=== PATIENT | male | born 1950 | race Caucasian/White ===

== ENCOUNTER → 2021-02-27 08:28 | Outpatient (CLI) | payer MEDICARE, SELFPAY ==
[2021-02-27 13:25] LABS: COVID19 -Nasal RAPID Negative (Negative)
== END ==
PROVIDERS: PCP Nurse Practitioner; Visit Provider Nurse Practitioner Family
DX: Z20.822 Contact with and (suspected) exposure to COVID-19 (principal)
CPT/HCPCS: 87635; C9803

== ENCOUNTER 2021-03-01 09:24 | Observation (INO) | payer MEDICARE, OTHER, SELFPAY ==
[2021-02-26 11:50] VITALS: BMI 28.7
[2021-02-28] VITALS (12 sets, daily range): BP systolic 112–163; BP diastolic 67–95; PULSE 52–87; RESP 12–17; TEMP 36.1–37.1; O2SAT 96–100; BMI 28.1
--- NOTE | 2021-02-28 06:00 | DI.RAD.S_ITS ---
PROCEDURE: XR HIP W PEL IF DONE LT 2V INDICATIONS: postop prosthesis placement TECHNIQUE: AP pelvis with lateral view(s) of the left hip(s). COMPARISON: [facility], MOE, XR HIP W PEL IF DONE LT 2V, 02/28/2021, 16:13. FINDINGS: Bones: Expected post operative alignment of left hip arthroplasty. Hardware appears intact. Mild right hip joint degeneration. No acute fracture. Soft tissues: Expected postsurgical changes. IMPRESSION: Expected post operative appearance Dictated by: Rakesh Rosen M.D. on 03/01/2021 at 10:31 Approved by: Rakesh Rosen M.D. on 03/01/2021 at 10:32
[2021-02-28] MEDS: LACTATED RINGERS 1,000 ML 42 ML IV ×2 (10:39→16:39)
[2021-02-28] MEDS: CELECOXIB 200 MG CAPSULE PO (11:08)
[2021-02-28] MEDS: PREGABALIN 75 MG CAPSULE PO (11:09)
[2021-02-28] MEDS: ACETAMINOPHEN 325 MG TABLET 975 MG PO (11:09)
--- NOTE | 2021-02-28 11:09 | PM.PREOP ---
Pre-operative Note COVID-19 COVID-19 status: Negative Interval Note History & Physical reviewed/Exam performed by Physician: Yes Changes to H&P: No
--- NOTE | 2021-02-28 11:10 | P.OP_ITS ---
Operative Date/Time/Diagnoses Date of procedure: 02/28/21 Time of procedure: 13:00 Pre-op diagnosis: Left hip osteoarthritis severe Post-op diagnosis: same Procedure & Clinicians Procedure: Left total hip arthroplasty anterior approach Same procedure as scheduled: Yes Indications: The patient has had progressively worsening left hip pain with radiographic changes consistent with arthritis. Non-operative management has failed and the patient has requested total hip replacement. The risks, benefits and alternatives to surgery were discussed with the patient prior to proceeding. Risks discussed included, but were not limited to, failure to relieve pain, leg length discrepancy, dislocation, stiffness, infection, nerve damage, deep venous thrombosis, pulmonary embolism, stroke, coma, heart attack, permanent paralysis and , as well as the potential need for eventual revision of the prosthetic. Surgeon: Shanika Majano Aquaculture Worker: Ondina Alston Anesthesia Type: General and Spinal Operative Notes Findings: Severe left hip osteoarthritis, adequate bone instability Closure Type: primary Specimen(s): none sent Prosthetic devices, grafts, tissues, transplants, or devices: Majano and Nephew 56 mm R3 cup, one 15 mm screw. Size 7 standard offset anthology a fit, 36 by -3 Oxinium femoral head, neutral poly liner Estimated Blood Loss (mL): 250 Blood products transfused: none Procedure in detail: The patient was brought to the operating room. Patient was carefully positioned in the supine position. Time-out was performed and antibiotics were given. Anesthesia was induced. He was positioned in the on the table in order to allow hyperextension of the hip. The left lower extremity was prepped and draped in a standard sterile fashion. An anterior left hip incision was made 1 fingerbreadth lateral to the anterior superior iliac spine and extended distally towards the greater trochanter. Dissection was carried out through skin and subcutaneous tissues. Superficial hemostasis was achieved. The fascia over the tensor fascia daron was defined and incised with a knife. Two Allis clamps were used to grasp the fascia. Tensor fascia daron was retracted laterally. A gelpi retractor was placed. Dissection was carried out down along the neck. The circumflex vessels were carefully identified and cauterized with the Aqua Mantis. There was good visualization of the femoral neck. A Cobra was placed superior to the neck and the gluteus fibers were carefully stripped from that superior aspect of the capsule. A 2nd retractor was placed along the inferior aspect of the neck. The rectus insertion along the capsule was partially released. A 3rd retractor that was then gently placed over the rim of the acetabulum under the rectus. Capsule was carefully incised and released from the intertrochanteric line circumferentially superior to the mid sagittal line and inferiorly to the mid sagittal line until the lesser trochanter was palpable. A tag stitch was placed both in the superior and inferior limb of the capsular insertion. Along the acetabulum capsule was also released up to the mid sagittal 12:00 position. A portion of the labrum was resected. A saw was used to perform an osteotomy at the level of the intertrochanteric line and the junction of the superior femoral neck leaving approximately 1 finger breath of residual inferior neck above the lesser trochanter. A 2nd cut was made along the femoral neck at the base of the head and a napkin ring of neck was removed. Corkscrew was placed in the femoral head and the head was removed without difficulty. Retractors were then repositioned around the acetabulum. Residual labrum was resected and additional osteophytes were removed. A reamer that was 4 mm below the templated size was placed by hand in the acetabulum and it was reamed to centralize the acetabulum. It was then reamed up to 2 under the templated size and fluoroscopy was brought in to confirm the position of the reaming and depth of reaming. I reamed 1 under the anticipated size. A trial cup was placed and noted that it was appropriately sized and fluoroscopy confirmed position and depth. The component was open and inserted without difficulty fluoroscopic imaging was used to confirm that the cup had been adequately seated and was well positioned. It was further stabilized with a single screw. Neutral poly liner was placed. The cup was tested and noted to be stable. Attention was then directed to the femur. The femur was gently hyperextended additional capsular release was performed as needed in order to allow adequate visualization of the proximal femur with elevation of the femur. Patient was placed in a hyperextended slightly adducted position with maximum external rotation. Box osteotome was used to check for any residual neck as well as sclerotic bone along the trochanter. [place] pepper was placed in the femur. Additional broaching was performed. Canal finder was used to determine the alignment of the canal and position. Size 1 broach was placed. The canal was then appropriately broached up to the templated size as long as there was adequate stability of the broach and serial advancement of the broach without excessive impingement. Specific attention was directed at avoiding varus attempting to direct the distal aspect of the broach more anteriorly and avoiding excessive anteversion. Trial reduction showed acceptable range of motion, good stability, no posterior impingement, restorationist of leg length and appropriate lateral shuck. I also hyperflexed the hip and checked that there was no impingement anteriorly and there was good stability with flexion, adduction and internal rotation. Marcaine and Exparel were injected. The stem was placed without difficulty. Repeat trial reduction and x-ray showed acceptable overall position, length, and no evidence of the femoral fracture. Final head was placed. Wound was meticulously irrigated with normal saline. The hip was reduced and additional Exparel and Marcaine were injected. The capsule was closed with interrupted nonabsorbable sutures. The fascia of the tensor was closed with interrupted and running Vicryl. No drain was placed. Any tensor fascia daron muscle that appeared to be contused or injured which was a minimal amount was carefully resected. Capsule around the tensor was injected with Exparel and Marcaine. The skin was closed with barbed stitches for the subcutaneous tissue and skin. We also used surgical glue. The wound was dressed sterilely. Brief Betadine soak was also used and was meticulously irrigated with normal saline. Patient was transferred to recovery room in satisfactory condition. Complications: none Post-operative Condition: stable Disposition: Acute Care Plan for aftercare: The patient will be maintained on a standard total hip replacement protocol with weight bearing as tolerated and anterior hip precautions. The patient will receive Aspirin and sequential compression devices for DVT prophylaxis. The patient will be discharged home when safe for the home environment.
--- NOTE | 2021-02-28 14:30 | DI.RAD.S_ITS ---
PROCEDURE: XR HIP W PEL IF DONE LT 2V INDICATIONS: LEFT TOTAL HIP ANTERIOR TECHNIQUE: AP pelvis with lateral view(s) of the left hip(s). COMPARISON: None. FINDINGS: Spot fluoroscopic intraoperative images demonstrating left hip arthroplasty components in expected intraoperative alignment. Dictated by: Rakesh Rosen M.D. on 03/01/2021 at 10:22 Approved by: Rakesh Rosen M.D. on 03/01/2021 at 10:22
[2021-02-28] MEDS: CEFAZOLIN 1 GM VIAL 2 GM IV ×2 (15:04→22:47)
[2021-02-28] MEDS: TRANEXAMIC ACID 1,000 MG VIAL 1000 MG INJ (15:09)
[2021-02-28] MEDS: VANCOMYCIN 1,000 MG/200 ML PIGGYBACK 200 MG IV (15:11)
--- NOTE | 2021-02-28 15:15 | SUR.OPER ---
Patient supine on padded [place] table, rIGHT arm on padded arm board at <90, Left arm padded and secured with tape across patient's chest, both legs secured in padded traction boots and positioned per surgeon, padded post at patient's groin, pressure points checked and padded.
[2021-02-28] MEDS: BUPIVACAINE LIPOSOME 266 MG/20 ML VIAL INJ (15:23)
[2021-02-28] MEDS: BUPIVACAINE 0.25% (PF) 60 ML, EPINEPHrine 0.3 MG INJ (15:27)
[2021-02-28] MEDS: LACTATED RINGERS 1,000 ML 125 ML IV (19:03)
[2021-02-28] MEDS: OXYCODONE IR 5 MG TABLET 10 MG PO ×2 (19:03→22:17)
[2021-02-28] MEDS: ACETAMINOPHEN 325 MG TABLET 650 MG PO (20:29)
[2021-02-28] MEDS: ATORVASTATIN 20 MG TABLET 40 MG PO (20:31)
[2021-02-28] MEDS: ASPIRIN EC 81 MG TABLET PO (20:31)
[2021-02-28] MEDS: DOCUSATE 100 MG CAPSULE PO (20:31)
[2021-02-28] MEDS: AMLODIPINE 5 MG TABLET 20 MG PO (20:32)
[2021-02-28] MEDS: COLCHICINE 0.6 MG TABLET PO (21:14)
[2021-02-28] MEDS: ZOLPIDEM 5 MG TABLET 10 MG PO (21:39)
--- NOTE | 2021-02-28 23:29 | PC.NURSE ---
1830: Pt to room 206 from PACU awake, alert, conversant. Admits to pain 8/10 to left hip and left shoulder. Ice placed to sites and meds as per emar. DRAWING IN MACHINE TENDER remains with pt to address pt's left shoulder complaint. States likely due to positioning on OR table. Pt's spouse arrives with pt's own cpap and will be spending night in room. R.T. informed pt has own cpap. Pt states sensation to feet BL is slightly dulled. BL calf scd's in place. Able to ankle wave with palpable pedal pulses. Denies nausea. Continuous pulse oximeter in place. HR mid to upper 50's and DRAWING IN MACHINE TENDER states this was patient's baseline in PACU as well. Pillow between legs and hip precautions reviewed with pt and pt's spouse. Anticipating P.T. in a.m.
[2021-03-01] VITALS: BP 116/68; PULSE 75; RESP 19; TEMP 36.8; O2SAT 97
[2021-03-01] MEDS: OXYCODONE IR 5 MG TABLET 10 MG PO ×4 (01:26→11:45)
[2021-03-01] MEDS: LACTATED RINGERS 1,000 ML 125 ML IV (02:51)
[2021-03-01 04:00] VITALS: BP 105/69; PULSE 86; RESP 17; TEMP 37.1; O2SAT 96
[2021-03-01 06:22] LABS: Hematocrit 29.7 % (41-53); Hemoglobin 10.5 g/dL (13.5-17.5)
--- NOTE | 2021-03-01 07:25 | PM.DS.1 ---
History of Present Illness History of Present Illness Date Patient Seen: 03/01/21 Time Patient Seen: 07:25 Chief complaint: Left hip pain s/p left SHIRA Narrative: Patient is complaining of [id number] left hip pain this morning. He notes he has some lateral thigh numbness which is new since surgery. No fevers, chills, night sweats. No nausea or vomiting. Overall he is feeling well, and like to be discharged home today. Discharge Providers Provider Discharge Date: 03/01/21 Primary care physician: CULLEN Calderón Consults: 02/28/21 06:00 Consult to Anesthesiology Routine Comment: Consulting Provider: Anesthesiologist Reason for consultation: Regional block for post operative pain control 02/28/21 18:42 Consult to Discharge Planning Routine Comment: Consult to Physical Therapy Evaluate & Treat Comment: Physician Instructions: post op SHIRA protocol Consult to Respiratory Therapy Evaluate & Treat Comment: Physician Instructions: Evaluate and treat Discharge provider: Ondina Alston PA-C Summary Hospital Course Discharge Diagnosis: Severe left hip osteoarthritis Hospital Course: Date of procedure: 02/28/21 Time of procedure: 13:00 Procedure & Clinicians Procedure: Left total hip arthroplasty anterior approach Same procedure as scheduled: Yes Indications: The patient has had progressively worsening left hip pain with radiographic changes consistent with arthritis. Non-operative management has failed and the patient has requested total hip replacement. The risks, benefits and alternatives to surgery were discussed with the patient prior to proceeding. Risks discussed included, but were not limited to, failure to relieve pain, leg length discrepancy, dislocation, stiffness, infection, nerve damage, deep venous thrombosis, pulmonary embolism, stroke, coma, heart attack, permanent paralysis and , as well as the potential need for eventual revision of the prosthetic. Surgeon: Shanika Majano Power Hammer Operator: Ondina Alston Anesthesia Type: General and Spinal Operative Notes Findings: Severe left hip osteoarthritis, adequate bone instability Closure Type: primary Specimen(s): none sent Prosthetic devices, grafts, tissues, transplants, or devices: Majano and Nephew 56 mm R3 cup, one 15 mm screw.? Size 7 standard offset anthology a fit, 36 by -3 Oxinium femoral head, neutral poly liner Estimated Blood Loss (mL): 250 Blood products transfused: none Status at Discharge Cognitive/behavioral status at discharge: oriented Functional status at discharge: uses cane/walker Overall status at discharge: patient is progressing back to baseline Exam Vital Signs (past 8 hours): - 03/01/21 00:00 03/01/21 04:00 Temperature 98.2 F 98.8 F Pulse Rate 75 86 Respiratory Rate 19 17 Blood Pressure 116/68 105/69 Pulse Oximetry 97 96 Oxygen Delivery Method CPAP Oxygen Flow Rate 0 Narrative Exam Narrative: 70-year-old male, resting comfortably in bed, no acute distress. is at bedside. Bilateral lower extremity motor functions are grossly intact. Sensation is grossly intact to light touch in bilateral lower extremities. Bilateral calves are soft, nontender to palpation. Dressing is clean, dry, intact. Objective Labs Result Diagrams: 03/01/21 06:05 Labs: Laboratory Results - last 24 hr 03/01/21 06:05 Hgb 10.5 L Hct 29.7 L PFSH Medical History Arthritis Bradycardia HLD (hyperlipidemia) HTN (hypertension) MONIE on CPAP Prostate cancer (02/2021) PSVT (paroxysmal supraventricular tachycardia) Sleep apnea Surgical History Hx of arthroscopy of right knee (~2013) Hx of prostate biopsy Hx of right cataract extraction Social History household members: spouse Smoking Status: Former smoker alcohol intake: current Discharge Assessment & Plan Assessment and Plan Plan of Treatment: Stable status post left total hip arthroplasty -mobilize with PT. Maintain anterior hip precautions x6 weeks. Weightbearing as tolerated with front wheel walker -continue with current DVT prophylaxis and pain regimen -planning on DC home today, when cleared by PT. Discharge Plan Discharge Plan Patient Disposition: Home Discharge orders & Medications Discharge Orders: Discharge (Order); Ordered 03/01/21 Ordered By: Ondina Alston Prescriptions: New acetaminophen 500 mg capsule 500 mg PO Q4H MDD Max 6 tabs per day PRN (Reason: fever or pain) Qty: 90 RF: 0 aspirin 81 mg Tablet,Delayed Release (Dr/Ec) 81 mg PO BID PRN (Reason: X6 weeks to prevent blood clots) Qty: 90 RF: 0 docusate sodium 100 mg Capsule 100 mg PO BID PRN (Reason: Constipation from narcotic pain med) Qty: 30 RF: 0 oxycodone 5 mg Tablet 10 mg PO Q3HR PRN (Reason: Pain, Severe (7-10)) Qty: 42 RF: 0 Continued losartan 50 mg Tablet 50 mg PO DAILY RF: 0 amlodipine 10 mg Tablet 20 mg PO BEDTIME RF: 0 furosemide 20 mg Tablet 20 mg PO QAM RF: 0 zolpidem 10 mg Tablet 5 - 10 mg PO BEDTIME PRN (Reason: Sleep) RF: 0 colchicine 0.6 mg Tablet 0.6 mg PO BEDTIME RF: 0 probenecid 500 mg Tablet 500 mg PO BID RF: 0 rosuvastatin 10 mg Tablet 10 mg PO BID RF: 0 baclofen 10 mg PO PRN PRN (Reason: Pain (Scale Score 1-3)) RF: 0 tramadol 50 mg PO PRN PRN (Reason: Pain (Scale Score 1-3)) RF: 0 Changed ibuprofen 200 mg Capsule 400 mg PO Q4H MDD Max 2400 mg per day PRN (Reason: Pain/inflammation) Qty: 90 RF: 0 Discontinued hydrocodone-acetaminophen 5-325 mg Tablet 1 tab PO Q4-6H PRN (Reason: Pain) RF: 0 acetaminophen 500 mg Tablet 1,000 mg PO BID RF: 0 Follow up/Referrals: Zachery Bethea ARNP [Primary Care Provider] - Shanika Majano MD [Physician] - (10-14 days for postoperative visit) Diet/Activity/Treatments Diet: Diet as Tolerated and Regular Other treatments: Medications: -Aspirin 81mg twice daily x6 weeks to prevent blood clots. -OTC Tylenol 500 mg 1 tablet every 4 hours as needed for pain/fever. Max 6 tablets per day. -Ibuprofen 400 mg 1 tablet every 4 hours as needed for pain/inflammation. Max 2,400 mg per day. -Oxycodone 5 mg take 1-2 tablets every 4 hours as needed for moderate-severe pain (narcotic pain medication). -As needed medications: -Ducolax and /or MiraLax as needed for constipation from narcotic pain medications. -Pepcid AC as needed for stomach upset (usually from aspirin or ibuprofen). Dressing/Wound care: -Remove the Kenneth wrap 48 hours after surgery. -Keep Aquacell dressing in place until postoperative follow-up office visit. -Okay to shower. Keep wound out of direct water stream. No soaking or submerging until all the scabs fall off (approximately 6 weeks). -Please call the office if dressing becomes wet, soiled, or saturated. Activities: -Maintain anterior hip precautions x6 weeks. -Weight-bearing as tolerated. Use front wheeled walker, and progress to cane when safe. -Continue with home exercises as directed by your physical therapist. -Elevate ?toes above the nose if you have significant swelling in your lower leg. (A wedge pillow is easiest.) -Ice your incision as needed for pain/inflammation/swelling. Protect your skin with a folded pillowcase. Follow-up: -Follow-up with your surgeon or PA in the office in 10-14 days after surgery. -Follow-up with your surgeon 6 weeks postoperatively. Call the office if you have chest pain, shortness of breath, significant swelling that will not resolve with elevating, fever over 101?, significantly worsening pain. [facility]: [phone] Skin/Wound/Dressing Care Report to your healthcare provider any signs of infection, such as:: chills, fever, night sweats, unusual drainage and unusual redness Visit Report/Discharge Packet Instructions: DI for Hip Replacement Stand Alone Forms: Surgery Discharge Discharge Data Primary Care Provider: Zachery Bethea Attending Provider: Shanika Majano
[2021-03-01 07:45] VITALS: BP 114/65; PULSE 69; RESP 18; TEMP 37.3; O2SAT 96
[2021-03-01] MEDS: ASPIRIN EC 81 MG TABLET PO (08:38)
[2021-03-01] MEDS: DOCUSATE 100 MG CAPSULE PO (08:38)
[2021-03-01] MEDS: ACETAMINOPHEN 325 MG TABLET 650 MG PO (08:38)
[2021-03-01 08:40] VITALS: BP 114/65; PULSE 69
[2021-03-01] MEDS: FUROSEMIDE 20 MG TABLET PO (08:40)
[2021-03-01] MEDS: LOSARTAN 50 MG TABLET PO (08:40)
--- NOTE | 2021-03-01 09:00 | CM.DANOTE ---
DCP: Case received, EMR reviewed and met with patient. Spouse, Jenise, was also at bedside. Introduced self and role. Was able to obtain information regarding patient's baseline activity status prior to surgery. DCP assessment completed with information currently available. Patient is a 70 year old male who admitted yesterday morning to the care of the orthopedic team. PCP: Dr. Bethea. Payer: confirmed: Medicare. Patient came to the hospital via private vehicle for a surgical procedure. He had left total hip arthroplasty. Patient has history of left hip osteoarthritis. Met with patient in his room. He was sitting up on the side of his bed having breakfast, spouse in the room. Confirmed that he is independent at his baseline, and he is employed as a air quality consultant. Him and his reside in [facility] in [facility] [facility], their [place] is a mailing address. Asked him how he had gotten around prior to surgery, and he indicated, hobbling around. He is still driving. His recently obtained a FWW for him through [employer]. He is set up with P.T through [employer] in [facility]. P: Patient is to be discharged home today pending working with P.T. Viola London RN/Import Export Manager Discharge Planning/Care Management CM Discharge Assessment Start: 03/01/21 08:59 Freq: Status: Active Protocol: Document 03/01/21 08:59 (Rec: 03/01/21 09:00 [id number]) Discharge Planning Assessment Assigned Enrober Tender Viola London RN/Import Export Manager Advance Directives? Yes Advance Directives on File No History Provided By Patient,Medical Record Prior Living Arrangements House Household Members spouse Type of transporation used prior to Drives own vehicle admit Independent with ADL's Yes Is patient alert and oriented? Yes Caregiver for Another No DME Already Rented / Owned FWW / Walker,Cane Patient/Family Preference OP PT Therapy Barriers to Discharge No Discharge Plan Home Transportation Arrangement Spouse Referrals Initiated None needed Whiteboard Updated in Patient Room with Yes name and ext. # of Enrober Tender Review Status In Process Next Review Type Continued Stay Review Pre-Anesthesia Assessment Start: 02/26/21 11:50 Freq: Status: Active Protocol: Document 02/26/21 11:50 CAB (Rec: 02/26/21 12:39 CAB [id number]) Pre-Anesthesia Assessment Preferred Name Mark Patient Information Reviewed Via Phone Assessment Assessment Completed With Patient H&P Completed Within 30 Days No: No identified at time of assessment Diagnostic Results BMP/CMP,CBC,EKG,Urinalysis Comment Outside labs/EKG scanned, COVID screen @ [facility] 02/27/21 Primary Care Provider Zachery Bethea Seen Specialist in Last 12 Months Yes Specialist Seen Student,Orthopedist, Urologist Primary Language Slovenian Contract Engineer Required No Height 5 ft 8 in Weight 189 lb Body Mass Index (BMI) 28.7 Hearing Ability Normal Visual Assist Magnifying Glass Dentition Type Teeth, Natural Present Barriers to Learning None Hx Anesthesia Reactions No Hx Family Anesthesia Reaction No Hx Malignant Hyperthermia No Hx Blood Transfusions No Anesthesia Review Requested No alcohol intake current alcohol intake frequency 0-2 drinks per day Alcohol Intake Frequency Other: Has not been drinking over last month Smoking Status Never smoker Substance Use Type does not use Pain Present Pain Reported Musculoskeletal Symptoms Abnormal Gait,Back Pain, Difficulty Walking,Joint Pain History of Falling (Recent or History of No ) Patient is completely paralyzed or No completely immobile Mental Status Oriented to own ability Is patient on oxygen? No Does patient have YAÑEZ/SOB No Hx Sleep Apnea Yes CPAP/BIPAP use prescribed and used routinely Will Bring CPAP/BIPAP DOS Yes Currently Taking a Beta Sukhjinder No Can You Climb a Flight of Stairs Without Yes SOB Hx Chest Pain No Hx SOB No Hx Syncope or Dizziness No Anti-Coagulant Therapy No [facility] Cardiac Testing Yes: ZIO patch 01/18/21 Hx Pacemaker/ICD No Pacemaker Rep Required? No Comment Cardiac records placed in surgery folder for dos Diet Type At Home Regular dysphagia No Urinary Catheter Present No Hx Urinary Self Catheterization No Diabetes No Hx Drug Resistant Organism No Presence of External or Internal Medical Yes: Right eye IOL, CPAP Devices Have you had any close contact with No someone diagnosed with COVID-19? Received a COVID vaccine? Yes: Pfizer Received all doses? Yes Marital Status Lives With spouse Prior Living Arrangements House Number of Floors (Floors) Two Floors Support System Spouse Does the Patient Have Assistance After Yes Surgery Patient Discharge Plan Description Return Home Comment Pt advised overnight length of stay per surgeon Feels Safe in Current Environment Yes Been Physically Hurt or Threatened By a No Person in Current Environment Do you have thoughts of harming yourself None or others? Are you currently considering suicide? No Do you have a plan to hurt yourself or No Plan others? Do You Have Any Spiritual Beliefs That No May Affect Your HC Choices? Do You Have Any Cultural Practices That No May Affect Your HC Choices? Comment Thor Who Can We Speak to About Patient's Care Family, friends Identifying Code for Release of Patient Declines to issue Information Health Care Proxy/Next of Kin Jenise () Health Care Proxy Emergency Contact Name Jenise () Emergency Contact Advance Directives? Yes Advance Directives on File No Requested Patient Bring Advanced Yes Directives DOS Power of Oracle Fusion Developer Yes Power of Oracle Fusion Developer Name Jenise () Power of Oracle Fusion Developer PAC Instructions Bring CPAP/BIPAP,Durable medical equipment,Medications to take/avoid,Nasal antibiotic ,No ETOH/petroleum product on skin DOS,NPO,Post-op transportation,Pre-surgical wash,Sturdy shoes/comfortable clothes,Do not bring valuables and remove jewelry
[2021-03-01 09:10] VITALS: O2SAT 94
--- NOTE | 2021-03-01 09:25 | PT.IIE ---
Current Diagnoses Unilateral primary osteoarthritis, left hip (03/01/21) Surgery Performed Operation Date: 02/28/21 11:45 Actual Procedures p Total Hip Arthroplasty/Anterior Approach(Left) - Shanika Majano MD Medical History (Last Reviewed 03/01/21 @ 07:27 by Ondina Alston PA-C) Arthritis Bradycardia HLD (hyperlipidemia) HTN (hypertension) MONIE on CPAP Prostate cancer (02/2021) PSVT (paroxysmal supraventricular tachycardia) Sleep apnea Physical Therapy Inpatient Evaluation/Re-Eval M1 PT/OT-IP Prior Functional Status Start: 03/01/21 12:35 Freq: NEEDED Status: Active Protocol: Document 03/01/21 09:25 AB (Rec: 03/01/21 12:48 AB [id number]) Medical Review Prior Functional Status Medical History Reviewed Yes Communication able to make needs known Mobility and Gait pt stated that he is independent with all mobiltiies and ambulation without AD Social History Household Members spouse Living Arrangements House Number of Floors (Floors) Two Floors Number of Stairs To Enter/Railing? pt will stay on the main level of the house 2 steps L rail ascending to tner the house Home Environment Standard Height Toilet,Tub/ Shower Home Equipment Front Wheel Walker,Bedside Commode,Shower Seat with Backrest,Hand Held Shower,Grab Bars In Shower Additional Social History Comment has an adjustable bed M2 PT-IP Current Condition Start: 03/01/21 12:35 Freq: NEEDED Status: Active Protocol: Document 03/01/21 09:25 AB (Rec: 03/01/21 12:48 AB [email or web address]) Physical Therapy Current Condition Current Condition Evaluation Date 03/01/21 Treatment Diagnosis s/p L SHIRA anterior approach; difficulty in walking Onset Date 02/28/21 M3 PT-IP Subjective Start: 03/01/21 12:35 Freq: NEEDED Status: Active Protocol: Document 03/01/21 09:25 AB (Rec: 03/01/21 12:48 AB [email or web address]) Subjective Physical Therapy Visit Type Type Initial Evaluation Visit Start Time 09:25 Visit Stop Time 10:45 Total Visit Minutes 80 Number of SUPERVISOR SCRAP PREPARATION Visits 0 Therapy Pain Assessment Pain When Pain Assessed At Rest Pain Present Pain Present Pain Reported Location Left Shoulder Intensity 7 Scale Used Numeric (0 - 10) Pain Management Techniques Apply Cold,Distraction, Modification of Treatment,Re- positioning,Timing of Activity with Medications M4 PT-IP Mobility and Gait Start: 03/01/21 12:35 Freq: NEEDED Status: Active Protocol: Document 03/01/21 09:25 AB (Rec: 03/01/21 12:48 AB [email or web address]) PT-Bed Mobility Assessment Supine to Sit Supine to Sit Standby Assistance PT-Transfer Assessment Sit to and From Stand Sit to and from Stand Contact Guard Assistance,1 Person Assistance,Use of Upper Extremities Equipment Transfer Assistive Device Gait Belt,Front Wheeled Walker Orthotic/Prosthetic Devices or Brace: No Transfers Transfer Destination Chair Transfer Technique ambulated Transfer Ability Level of Assist Contact Guard Assistance,1 Person Assistance,Use of Upper Extremities Comments Mobility Comments educated pt and spouse regarding anterior hip precautions. pt completed supine to sit SBA . sat on EOB SBA. completed sit to stand CGA and cues and ambulated in room ~ 15 ft using FWW CGA and cues for hip precautions. pt sat on chair . Caregiver training conducted. educated spouse on how to use safety belt and how to assist pt. pt completed sit to stand with spouse assisting and ambulated in the hallway ~ 150 ft using FWW spouse providing SBA to CGA. stair climbing training: pt completed up/down steps using L rail ascending CGA. spouse was able to assist pt. pt ambulated back to his room using fWW SBA. pt sat back on chair. pt and spouse educated on tub shower transfers Left pt with spouse in room. call light and table placed within reach. Gait Assessment Gait Gait Assistance Required: Standby Assistance,Contact Guard Assist Distance (Feet) 150 Able to Maintain Weight Bearing Status Yes During Gait Assistive Devices Assistive Device Gait Belt,Front Wheeled Walker Orthotic/Prosthetic Devices or Brace: No Gait Deviations General Gait Pattern Antalgic,Decreased Stride Length,Decreased Feet Clearance Factors Limiting Gait Function Factors Limiting Gait Function Decreased Activity Tolerance, Decreased Strength,Limited Range of Motion,Pain,Poor Balance,Poor Safety Awareness Stair Climbing Assessment Evaluation Level of Assist On Stairs Contact Guard Assistance Devices Stair Climbing Assistive Devices Left Railing Technique/Endurance Stair Climbing Direction Ascend and Descend Stair Climbing Technique Step to Step Number of Steps Climbed 3 Query Text: Stair Climbing Set # Repetitions (reps) 2 PT-Balance Assessment Sitting Balance and Reactions Static Sitting Balance Ability Good Dynamic Sitting Balance Ability Good Standing Balance and Reactions Static Standing Balance Ability Fair Dynamic Standing Balance Ability Fair Device Used FWW M5 PT-IP Objective Assessments Start: 03/01/21 12:35 Freq: NEEDED Status: Active Protocol: Document 03/01/21 09:25 AB (Rec: 03/01/21 12:48 AB [email or web address]) Orientation Orientation/Cognition Level of Alertness Alert Orientation Name,Place,Situation Safety Awareness Decreased Safety Awareness Memory Description Short Term Impaired Gross Range of Motion Lower Extremity ROM Assessment Within Functional Limits Strength Lower Extremity Strength Assessment Left Impaired Hip 3+/5 Knee 4/5 Coordination Assessment Gross Coordination Gross Coordination WNL Sensation Assessment Sensation Gross Sensation WNL Muscle Tone Muscle Tone WNL Yes M6 PT-IP Treatment Start: 03/01/21 12:35 Freq: NEEDED Status: Active Protocol: Document 03/01/21 09:25 AB (Rec: 03/01/21 12:48 AB [email or web address]) Physical Therapy Treatment Education Education Provided Precautions,Weight Bearing Status,Post-Op Packet,Safety M7 PT-IP Assessment and Plan Start: 03/01/21 12:35 Freq: NEEDED Status: Active Protocol: Document 03/01/21 09:25 AB (Rec: 03/01/21 12:48 AB [email or web address]) PT Summary Assessment and Plan Potential Rehabilitation Potential Good Status of Condition at Evaluation Stable Summary Impairments Pain,ROM,Strength,Balance, Coordination,Sensation,Tone, Cognition,Bed Mobility, Transfers,Gait,Activity Tolerance Assessment Summary pt requiring SBA to CGA with mobility but with slight confusion and requires cues for hip precautions and safety . caregiver training conducted and spouse was able to assist pt safely. pt plans to go home with spouse assisting and has outpt PT set up. Goals Bed Mobility Goal Independent Transfer Goal Independent,Front Wheeled Walker Gait Goal Independent,Front Wheel Walker Gait Distance 250 Other Goals up/down 2 steps L rail mod I Days to Meet Goals 5 Frequency of Treatment Frequency Of Treatment Twice a Day Treatment Plan Physical Therapy Treatment Plan Bed Mobility Training,Transfer Training,Gait Training, Therapeutic Exercise,Balance Retraining,Post Op Education, Discharge Planning,Hot or Cold Pack,Neuromuscular Re-ed, Coordination Retraining,Manual Therapy Precautions Anterior Hip Precautions No Hip Extension,No Hip External Rotation Weight Bearing Status Weight Bearing Status Weight Bear as Tolerated Allowed Weight Bearing Amount (enter % LLE WBAT or #) (%) Recommendations To Nursing Amount of Assist Needed 1 Person Assist Discharge Recommendations PT Discharge Recommendations Home with Assistance, Outpatient PT Transportation Needs at Discharge Private Vehicle
[2021-03-01] MEDS: PROBENECID 500 MG TABLET PO (10:59)
[2021-03-01] MEDS: CEFAZOLIN 1 GM VIAL 2 GM IV (11:00)
[2021-03-01] MEDS: HYDROCODONE/ACET 5/325 TABLET 1 TAB PO (11:01)
[2021-03-01] MEDS: INFLUENZA HD VACCINE 0.7 ML SYRINGE IM (12:31)
--- NOTE | 2021-03-01 15:27 | PC.NURSE ---
Pt A&Ox3, VSS, afebrile on RA. He reports pain controlled well with PRN pain medications. Voiding without difficulty SBA to bathroom.PA at bedside this a.m. clearing patient for discharge home pending PT/OT evaluation. PT clears patient this a.m. for discharge and teaching patient, completing stairs. at bedside supportive and assisting with hip precaution and reminding him of precautions. Both and pt verbalize understanding of discharge medications, activity limitations, incision site care, S/sx of infection, worsening symptoms and medications as well as follow up appointments. Pt is escorted by EMBEDDED FIRMWARE ENGINEER via w/ch to private vehicle with for discharge home just after lunch at approximately 1230.
== END 2021-03-01 12:55 | disposition home or self-care (01) ==
LOC: OR 09:42 → AC 09:42
PROVIDERS: Admitting Provider Orthopaedic Surgery; PCP Nurse Practitioner; Referring Provider Nurse Practitioner; Visit Provider Orthopaedic Surgery
PROC: (CPT 27130; principal; 2021-02-28 11:45)
DX: M16.12 Unilateral primary osteoarthritis, left hip (principal); I10 Essential (primary) hypertension; G47.33 Obstructive sleep apnea (adult) (pediatric); I47.1 Supraventricular tachycardia; Z23 Encounter for immunization
CPT/HCPCS: 27130; 36415; 73502; 76000; 85014; 85018; 90471; 90662; 97116; 97161; 97530; C1776; G0378; C9290; J0171; J0690; J2250; J2704; J3010